=== PATIENT | female | born 1955 | race Caucasian/White ===

== ENCOUNTER 2019-03-03 11:26 | Emergency (ER) | payer MEDICARE ==
[2019-03-03 11:37] VITALS: BP 127/53
--- NOTE | 2019-03-03 12:00 | ER Document Report ---
HPI - HPI Patient complains to provider of: Spider bite to leg Time Seen by Provider: 03/03/19 11:52 Onset: Other - 10 days Onset/Duration: Persistent Pain Level: 0 Context: Patient complains of spider bite to the left leg although she did not actually see the spider bite her leg. Patient with a spontaneously draining wound to the left lower leg, no surrounding erythema. No fever. No known history of MRSA. Associated Symptoms: Other - Drainage to left lower leg Exacerbated by: Denies Relieved by: Denies Similar symptoms previously: Yes Recently seen / treated by doctor: No - ROS ROS below otherwise negative: Yes Systems Reviewed and Negative: Yes All other systems reviewed and negative - GASTROINTESTINAL Gastrointestinal: DENIES: Nausea - DERM Skin Color: Normal Notes: Purulent drainage from insect bite Past Medical History - General Information source: Patient - Social History Smoking Status: Current Every Day Smoker Chew tobacco use (# tins/day): No Frequency of alcohol use: None Drug Abuse: None Occupation: None Family History: Reviewed & Not Pertinent Patient has suicidal ideation: No Patient has homicidal ideation: No - Medical History Medical History: Negative Past Surgical History: Reports: Hx Tonsillectomy Vertical Provider Document - CONSTITUTIONAL Agree With Documented VS: Yes Exam Limitations: No Limitations General Appearance: WD/WN, No Apparent Distress - INFECTION CONTROL TRAVEL OUTSIDE OF THE [place] IN LAST 30 DAYS: No - HEENT HEENT: Atraumatic, Normocephalic - NECK Neck: Normal Inspection - RESPIRATORY Respiratory: Breath Sounds Normal, No Respiratory Distress - CARDIOVASCULAR Cardiovascular: Regular Rate, Regular Rhythm - BACK Back: Normal Inspection - MUSCULOSKELETAL/EXTREMETIES Musculoskeletal/Extremeties: MAEW, FROM - NEURO Level of Consciousness: Awake, Alert, Appropriate Motor/Sensory: No Motor Deficit - DERM Integumentary: Warm, Dry, Abscess - Patient with spontaneously draining abscess to left lower leg. Specimen collected and sent for culture. No surrounding erythema, no concern for cellulitis. Abscess diameter measures 0.5 cm. Course - Re-evaluation Re-evalutation: 03/03/19 11:59 We will cover with antibiotics at this time. Wound culture sent. Patient advised on wound management and signs or symptoms to return. 03/03/19 11:59 - Vital Signs Vital signs: Temp Pulse Resp BP Pulse Ox 98.8 F 102 H 16 127/53 H 100 03/03/19 11:34 03/03/19 11:34 03/03/19 11:34 03/03/19 11:34 03/03/19 11:34 Discharge - Discharge Clinical Impression: Abscess of left leg Condition: Stable Disposition: HOME, SELF-CARE Instructions: Abscess ([facility]), Bactroban Ointment ([facility]), Trimethoprim-Sulfa ([facility]) Additional Instructions: Return immediately for any new or worsening symptoms Followup with your primary care provider, call tomorrow to make a followup appointment Keep wound covered as it continues to heal Prescriptions: Sulfamethoxazole/Trimethoprim [Bactrim Ds Tablet] 1 each PO BID #20 tablet Mupirocin [Bactroban 2% Ointment 22 gm] 1 applic TP TID #22 gm Forms: Smoking Cessation Education
== END 2019-03-03 12:07 | disposition home or self-care (01) ==
LOC: ER 11:26
DX: L02.416 Cutaneous abscess of left lower limb (principal); T63.301A Toxic effect of unspecified spider venom, accidental (unintentional), initial encounter; F17.200 Nicotine dependence, unspecified, uncomplicated
CPT/HCPCS: 87070; 87205; 99281